=== PATIENT | male | born 1950 | race Caucasian/White ===

== ENCOUNTER 2017-11-07 13:18 | Outpatient (CLI) | payer OTHER ==
--- NOTE | 2017-11-07 16:25 | MRI ---
MRI THORACIC SPINE WITH AND WITHOUT CONTRAST: Date: 11/07/17 HISTORY: 67-year-old male with pain, hypesthesia (numbness), and paresthesia of mid back. Abnormality found in thoracic spinal cord on a noncontrast MRI of the cervical spine. MRI thoracic spine recommended on t hat report. TECHNIQUE: Multisequence MRI of the thoracic spine obtained in sagittal and axial planes, pre and post IV inject ion of 13 mL MultiHance Gadolinium based contrast agent. FINDINGS: As previously stated on the MRI cervical spine report, there is vertically oriented, thin focus of T2 hyperintense (fluid) signal in the central aspect of the spinal cord at the T3 level, measuring appr oximately 1 mm (0.1 cm) caliber. There is no abnormal enhancement associated with this. A similar, bu t even thinner, vertically oriented focus of such T2 hyperintense signal is centered at the T6-7 leve l, within the center of the spinal cord. Finally, a very tiny such focus is present at the inferior T 8 level. These are consistent with tiny dilatations of the central canal of the spinal cord (minimal hydromyelia). Otherwise, there is no abnormal intramedullary signal in the spinal cord parenchyma. Th ere is mild depression of the superior end plate of T6 surrounding a slightly prominent Schmorl's nod e with minimal bone marrow signal changes and mild enhancement. Otherwise, the bone marrow signal is normal, and the vertebral body heights are maintained, throughout the rest of the levels. There is no significant central spinal canal stenosis within the thoracic spinal canal. (There is encroachment u devonte the spinal canal at C6-7 due to left-sided disc-osteophyte complex in the cervical spine). No ext rinsic impingement on the spinal cord at any level in the thoracic spine. The perivertebral spaces de monstrate no major pathology. Conus medullaris terminates at T12-L1 level. IMPRESSION: 1. 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 2. Acute or subacute Schmorl's node at superior endplate of T6. 3. Otherwise no major pathology of the thoracic spine. No evidence of neoplasm of the thoracic spina l cord. POS: [facility]
== END 2017-11-07 13:19 | disposition home or self-care (01) ==
LOC: TBSIIMAG 13:18
PROVIDERS: ATTEND Surgery
DX: G95.0 Syringomyelia and syringobulbia (principal); M51.44 Schmorl's nodes, thoracic region
CPT/HCPCS: 72157; 82565